=== PATIENT | male | born 1945 | race Caucasian/White ===

== ENCOUNTER 2017-09-25 17:31 | Emergency (ER) | payer MEDICARE, MEDICAID ==
--- NOTE | 2017-09-25 17:56 | EDM.PDOC ---
ED HPI GENERAL MEDICAL PROBLEM - General Chief Complaint: CPR in Progress Stated Complaint: UNKNOWN Time Seen by Provider: 09/25/17 17:47 Source of Information: Reports: Patient - History of Present Illness INITIAL COMMENTS - FREE TEXT/NARRATIVE: HISTORY AND PHYSICAL: History of present illness: Patient presents via EMS with [place] Coma Scale of 3 he is intubated prior to arrival, EMS arrival at the patient's home at 1653 hrs. within seconds of their arrival he went down. EMS they began CPR appropriately and found him to be in ventricular fibrillation a shock was provided he has had pulseless electrical activity since they coded the patient for approximately 30 minutes prior to their arrival at the emergency room. One amp of bicarbonate was provided along with 4 doses of epinephrine in the field reported by EMS On arrival patient remained in PEA he was provided epinephrine 1 mg on arrival with 2 subsequent doses, he remained in PEA with subsequent doses of epinephrine that were provided, chest x-ray confirms chest tube placement, no respiratory effort from the patient Patient is pale and mottled No review of systems is able to be obtained The only past medical history that is known at this time his diabetes Physical exam: HEENT: Atraumatic, normocephalic, pupils nonreactive no corneal reflex no scleral icterus, mucous membranes moist, throat clear, neck supple, nontender, trachea midline. ET tube noted Lungs: Clear to auscultation, breath sounds equal bilaterally, no respiratory effort Heart: S1S2, regular, negative for clicks, rubs, or JVD. Abdomen: Soft, nondistended, nontender. Negative for masses or hepatosplenomegaly. Negative for costovertebral tenderness. Pelvis: Stable nontender. Genitourinary: Deferred. Rectal: Deferred. Extremities: Atraumatic, no femoral pulse no carotid pulse. Neuro: [place] Coma Scale 3 Diagnostics: [CBC CMP troponin drawn cafeteria monitor with pulseless electrical activity Chest 1 view ] Therapeutics: [Epinephrine 1 mg 3 doses Airway secured prior to arrival 1 L normal saline bolus Patient's power of environmental attorney Aram Masters was present in the emergency room he has voiced to stop resuscitation, the patient received 40 minutes of ACLS ] Impression: [ pulseless electrical activity Glascow coma scale 3 Time of called at 1740 hrs. Asystole 40-45 minutes of ACLS provided via EMS and staff. The emergency room ] Definitive disposition and diagnosis as appropriate pending reevaluation and review of above. - Related Data Allergies Allergy/AdvReac Type Severity Reaction Status Date / Time cheese Allergy Hives Verified 10/02/15 23:44 Home Meds: Home Meds . [Unable to Verify Home Med List] 10/13/15 [History] Past Medical History HEENT History: Reports: Other (See Below) Other HEENT History: wearing spectacles Cardiovascular History: Reports: None Respiratory History: Reports: None Gastrointestinal History: Reports: GERD Genitourinary History: Reports: None Musculoskeletal History: Reports: None Neurological History: Reports: None Psychiatric History: Reports: None Endocrine/Metabolic History: Reports: Diabetes, Type II Hematologic History: Reports: None Immunologic History: Reports: None Oncologic (Cancer) History: Reports: None Dermatologic History: Reports: None - Past Surgical History Head Surgeries/Procedures: Reports: None HEENT Surgical History: Reports: None Cardiovascular Surgical History: Reports: None GI Surgical History: Reports: None Neurological Surgical History: Reports: None Dermatological Surgical History: Reports: None Social & Family History - Family History Family Medical History: Noncontributory - Tobacco Use Smoking Status *Q: Former Smoker - Recreational Drug Use Recreational Drug Use: No ED ROS GENERAL - Review of Systems Review Of Systems: ROS reveals no pertinent complaints other than HPI. ED EXAM, GENERAL - Physical Exam Exam: See Below Course - Orders/Labs/Meds Orders: Active Orders 24 hr Category Date Time Status Chest 1V Frontal [CR] Stat Exams 09/25/17 Ordered Departure - Departure Time of Disposition: 17:56 Disposition: DC/Tfer to Other 70 Condition: Poor Clinical Impression: Asystole, PEA (Pulseless electrical activity) - Discharge Information Forms: ED Department Discharge
[2017-09-25 21:11] VITALS: BP 99/47
--- NOTE | 2017-09-26 16:37 | CR ---
EXAM DATE: 09/25/17 PATIENT'S AGE: 72 Patient: WALLY MARIN Facility: [place], [place] Site . Site : 1945 Study: XRay Chest [id number]/29/2018 5:51:10 PM Ordering Physician: Doctor Vasquez Final Report: CP in progress check ETT Technique: Portable chest Findings: Portable chest demonstrates an endotracheal tube 4.4 cm above the elva. Cardiac silhouette is prominent. Diffuse interstitial opacities. No pneumothorax or effusion. IMPRESSION: 1. Endotracheal tube 4.4 cm above the elva 2. Diffuse interstitial opacities may represent pulmonary edema. Dictated by Georgina Osman MD @ Sep 25 2017 5:52PM (Electronic Signature) Report Signed by Proxy. JANNET
== END 2017-09-25 18:43 | disposition expired ==
LOC: MW.ED 17:31
DX: I46.9 Cardiac arrest, cause unspecified (principal); E11.9 Type 2 diabetes mellitus without complications; Z91.011 Allergy to milk products; Z87.891 Personal history of nicotine dependence
CPT/HCPCS: 71045; 71045-26; 92950; 99285; 99285-25